=== PATIENT | male | born 1980 | race Asian ===

== ENCOUNTER 2017-03-30 19:21 | Emergency (ER) | payer OTHER ==
[~2017-03-30] VITALS: Ht 165.1 cm; Wt 63.5 kg
[~2017-03-30 19:21] MED LIST: ZPAK PO
[2017-03-30] MEDS ORDERED: LIORESAL 10 MG10 MG PO (19:57)
[2017-03-30] MEDS ORDERED: IBUPROFEN 600600 M1 PO (19:57)
== END 2017-03-30 20:02 | disposition home or self-care (01) ==
LOC: ER 19:21
DX: S29.012A Strain of muscle and tendon of back wall of thorax, initial encounter (principal); F17.200 Nicotine dependence, unspecified, uncomplicated; X58.XXXA Exposure to other specified factors, initial encounter; Y93.89 Activity, other specified; Y92.89 Other specified places as the place of occurrence of the external cause; Y99.8 Other external cause status